=== PATIENT | female | born 2000 | race Caucasian/White ===

== ENCOUNTER 2021-08-05 11:09 | Day surgery (SDC) | payer MEDICARE, OTHER ==
[~2021-08-05] VITALS: Ht 170.2 cm; Wt 61.7 kg
[~2021-08-05 11:09] MED LIST: BUPR100T8 PO; LAMO200T49 PO; SERT100T32 PO; testosterone INJ
[2021-08-05] MEDS ORDERED: LACTATED RINGERS 1,000 ML IV SCH (12:00)
[2021-08-05] MEDS ORDERED: CHLORHEXIDINE 15 ML UDC PO ONE (12:00)
[2021-08-05 12:31] VITALS: BP 109/75
[2021-08-05] MEDS ORDERED: FENTANYL PF 250 MCG/5ML ONE (13:04)
[2021-08-05] MEDS ORDERED: MIDAZOLAM 1 MG/ML, 2ML ONE (13:04)
[2021-08-05] MEDS ORDERED: BUPIVACAINE/PF 0.5% ONE (13:29)
[2021-08-05] MEDS ORDERED: FENTANYL PF 100 MCG/2ML IV PRN (13:30)
[2021-08-05] MEDS ORDERED: EPHEDRINE 50 MG/ML, 1ML IVPush PRN (13:30)
[2021-08-05] MEDS ORDERED: hydrALAzine 20 MG/ML, 1ML IV PRN (13:30)
[2021-08-05] MEDS ORDERED: LABETALOL 5MG/ML, 20ML IV PRN (13:30)
[2021-08-05] MEDS ORDERED: ONDANSETRON 2MG/ML, 2ML IVPush PRN (13:30)
[2021-08-05] MEDS ORDERED: HYDROmorphone 1 MG/ML, 1ML INJ IVPush PRN (13:30)
[2021-08-05] MEDS ORDERED: PROMETHAZINE 25 MG/ML, 1ML IVPush PRN (13:30)
[2021-08-05] MEDS ORDERED: MEPERIDINE/PF 25MG/0.5ML IVPush PRN (13:30)
[2021-08-05] MEDS ORDERED: OXYcodone 5 MG/5 ML ORAL.SOL UDC PO PRN (13:30)
[2021-08-05] MEDS ORDERED: ACETAMINOPHEN 325 MG TABLET PO PRN (13:30)
[2021-08-05] MEDS ORDERED: ONDANSETRON 2MG/ML, 2ML ONE (13:32)
[2021-08-05] MEDS ORDERED: LIDOCAINE-MPF 2% ,5ML ONE (13:32)
[2021-08-05] MEDS ORDERED: DEXAMETHASONE 4 MG/ML, 1ML ONE (13:32)
[2021-08-05] MEDS ORDERED: SUCCINYLCHOLINE 20 MG/ML, 10ML ONE (13:32)
[2021-08-05] MEDS ORDERED: CEFAZOLIN 1,000 MG ONE (13:32)
[2021-08-05] MEDS ORDERED: PROPOFOL 10 MG/ML, 20ML ONE (13:32)
[2021-08-05] MEDS ORDERED: EPINEPHRINE 1 MG/ML, 1ML ONE (13:37)
[2021-08-05] MEDS ORDERED: MEPERIDINE/PF 25MG/ML,1ML ONE (15:11)
== END 2021-08-05 18:00 | disposition home or self-care (01) ==
LOC: OUT 11:09
PROVIDERS: ATTEND Plastic Surgery
DX: F64.9 Gender identity disorder, unspecified (principal); F64.1 Dual role transvestism; Z79.899 Other long term (current) drug therapy; Z80.3 Family history of malignant neoplasm of breast
CPT/HCPCS: 19303; 19350; 36415; 84703; 88305; C1729; C1760; J0171; J0330; J0690; J1100; J2175; J2250; J2405; J2704; J3010; J7120